=== PATIENT | female | born 1945 | race Caucasian/White ===

== ENCOUNTER 2018-06-25 14:55 | Outpatient (CLI) | payer OTHER | END 2018-06-25 15:04 | disposition home or self-care (01) | LOC: MAMO-SONO 14:55 | DX: N60.11 Diffuse cystic mastopathy of right breast (principal); N60.12 Diffuse cystic mastopathy of left breast; Z12.31 Encounter for screening mammogram for malignant neoplasm of breast; Z87.898 Personal history of other specified conditions ==

== ENCOUNTER 2018-09-21 11:16 | Outpatient (CLI) | payer OTHER | END 2018-09-21 16:12 | disposition home or self-care (01) | LOC: SONOGRAMA 11:16 | DX: T85.42XA Displacement of breast prosthesis and implant, initial encounter (principal) ==